=== PATIENT | male | born 1995 | race Caucasian/White ===

== ENCOUNTER → 2020-02-13 | Outpatient (REF) | payer OTHER ==
[2020-02-13 23:08] LABS: CHLAMYDIA DNA AMPLIFICATION NEGATIVE (NEGATIVE); GC DNA AMPLIFICATION NEGATIVE (NEGATIVE)
== END ==
LOC: M WUC 21:17
PROVIDERS: ATTEND Physician Assistant
DX: R30.0 Dysuria (principal)

== ENCOUNTER → 2024-01-12 | Outpatient (REF) | payer OTHER, BC ==
[2024-01-12 19:52] LABS: Trichomonas vaginalis (AMP) NOT DETECTED (NEGATIVE)
[2024-01-12 20:15] LABS: GC DNA AMPLIFICATION NEGATIVE (NEGATIVE)
== END ==
LOC: M LAB REF 18:04
PROVIDERS: ATTEND Student in an Organized Health Care Education/Training Program
DX: R30.0 Dysuria (principal)

== ENCOUNTER → 2024-10-08 | Outpatient (REF) | payer BC | LOC: M LAB REF 12:24 | PROVIDERS: ATTEND Physician Assistant Medical | DX: L98.9 Disorder of the skin and subcutaneous tissue, unspecified (principal) ==

== ENCOUNTER → 2024-10-19 | Outpatient (REF) | payer BC ==
[2024-10-23 23:18] LABS: HSV-1 DNA Not Detected (Not Detected); HSV-2 DNA Not Detected (Not Detected)
== END ==
LOC: M SFHCADAM 13:00
PROVIDERS: ATTEND Physician Assistant
DX: L71.0 Perioral dermatitis (principal)

== ENCOUNTER → 2024-12-04 | Outpatient (REF) | payer BC | LOC: M SFHCDERM 12:58 | PROVIDERS: ATTEND Physician Assistant | DX: L71.0 Perioral dermatitis (principal) ==